=== PATIENT | female | born 1970 | race Caucasian/White ===

== ENCOUNTER 2020-07-09 14:04 | Emergency (ER) | payer OTHER, SELFPAY ==
--- NOTE | ~2020-07-09 | XR_ITS ---
EXAMINATION: XR chest 2V EXAM DATE: 07/09/2020 14:51 INDICATION: Chest pain for a day. TECHNIQUE: Frontal and lateral projections of the chest obtained and reviewed. There is no prior tonny dy for comparison. FINDINGS: The lungs are clear. There are no pleural effusions. The cardiomediastinal silhouette is within normal limits. There is no pneumothorax suspected. The bones and soft tissues are unremarkab le. IMPRESSION: Normal chest x-ray exam. Reviewed, dictated and finalized at location A. IMPRESSION: Normal chest x-ray exam.
[2020-07-09 14:08] VITALS: BP 154/94; PULSE 117; RESP 20; TEMP 36.9; O2SAT 98
--- NOTE | 2020-07-09 14:18 | ED.GENADULT ---
HPI - General Adult General Chief complaint: Chest Pain Stated complaint: Pain from back around to front Time Seen by Provider: 07/09/20 14:24 Source: patient and RN notes reviewed Mode of arrival: ambulatory Limitations: no limitations History of Present Illness HPI narrative: 50-year-old female with history of asthma presents with concern for chest and shoulder pain, left-sided back pain that wraps around to the front of her chest on her left breast. She reports she had stabbing chest pain recently and was seen by her primary care doctor and was diagnosed with pleurisy, given steroids. Reports her lisinopril dose was increased from 2.5 mg to 5 mg. Reports since the increase in lisinopril she has been having intermittent dizziness, headaches, lightheadedness. She denies cough, shortness of breath. Reports her asthma has been well controlled. She denies rash at the site of her left chest and back pain. Patient reports she was vaccinated for Covid in May. MD complaint: Chest pain Related Data Home Medications Medication Instructions Recorded Confirmed albuterol sulfate [ProAir HFA] 90 mcg INHALATION Q4-6H PRN 07/09/20 07/09/20 fluticasone propion-salmeterol 1 inh INHALATION BID 07/09/20 07/09/20 [Advair Diskus] lisinopril 5 mg PO DAILY 07/09/20 07/09/20 montelukast 10 mg PO DAILY 07/09/20 07/09/20 Allergies Allergy/AdvReac Type Severity Reaction Status Date / Time No Known Allergies Allergy Verified 07/09/20 14:28 Review of Systems Review of Systems: Narrative: CONSTITUTIONAL: Denies malaise, chills, sweats, or fever. EYES: Denies visual changes ENT: Denies rhinorrhea, congestion, sinus pain, otalgia or sore throat. CARDIOVASCULAR: Reports bilateral chest pressure and tightness. Denies palpitations, or edema. RESPIRATORY: Denies cough or dyspnea. GASTROINTESTINAL: Denies abdominal pain, nausea, vomiting, diarrhea, bloody, or mucous stools. SKIN: Denies rash or itching. MUSCULOSKELETAL: Reports bilateral shoulder pressure and tension, left-sided upper back pain that wraps around to the left-sided chest. Denies myalgia. NEUROLOGIC: Denies numbness, weakness. Reports headache. PSYCHIATRIC: Reports anxiety All systems reviewed & are unremarkable except as noted in HPI and below PMFSH Comments At time of signature, agree with nursing past medical, surgical, social and family history. There is no relevant family history pertinent to the presenting complaint Exam Narrative: Exam Narrative: GENERAL: Well-appearing, well-nourished, and in no acute distress. HEAD: Normocephalic, atraumatic. EYES: PERRLA, conjunctivae clear, and EOMI. No nystagmus. ENT: Nares clear. Mucous membranes moist. NECK: Supple. No lymphadenopathy. CHEST: No respiratory distress. Clear to auscultation. No bony deformities, no asymmetry. Speaks in full sentences. HEART: Regular rate and rhythm. No murmur heard. Normal peripheral pulses. SKIN: Warm, dry, no rash. NEURO: Alert and oriented x3. No focal deficits. Cranial nerves II through XII grossly intact PSYCH: Normal mood and affect Course Course Emergency Course: Patient is aware of, understands and agrees to treatment plan. Patient has a follow-up appointment with her primary care doctor today. Portions of this record may have been created with voice recognition software Vital Signs Vital signs: Vital Signs Temperature 98.5 F 07/09/20 14:08 Pulse Rate 117 H 07/09/20 14:08 Respiratory Rate 20 07/09/20 14:08 Blood Pressure 154/94 H 07/09/20 14:08 Pulse Oximetry 98 07/09/20 14:08 Temperature 98.5 F 07/09/20 14:08 Pulse Rate 117 H 07/09/20 14:08 Respiratory Rate 20 07/09/20 14:08 Blood Pressure 154/94 H 07/09/20 14:08 Pulse Oximetry 98 07/09/20 14:08 Reviewed. Patient has history of hypertension Medical Decision Making MDM Narrative Medical decision making narrative: Exam findings EKG, and imaging show no acute concerns or changes; patient is non-toxic
--- NOTE | 2020-07-09 14:31 | ECG_ITS ---
Measurements Intervals [place] Rate: 109 P: 59 [place]: 134 QRS: -7 QRSD: 77 T: 44 QT: 322 QTc: 434 Interpretive Statements SINUS TACHYCARDIA ABNORMAL ECG Electronically Signed On 07-09-2020 14:43:21 CDT by Efrain Brooks D.O.
== END 2020-07-09 15:10 | disposition home or self-care (01) ==
PROVIDERS: Emergency Provider Nurse Practitioner; PCP Internal Medicine
DX: R07.9 Chest pain, unspecified (principal); Z20.822 Contact with and (suspected) exposure to COVID-19; I10 Essential (primary) hypertension; J45.909 Unspecified asthma, uncomplicated
CPT/HCPCS: 71046; 87426; 93005; 99203; C9803; G0463

== ENCOUNTER 2020-09-26 11:30 | Outpatient (CLI) | payer OTHER, SELFPAY ==
[2020-09-26 11:57] LABS: Anion Gap 9 mmol/L (8-16); Blood Urea Nitrogen 9 mg/dL (7-17); Calcium 9.2 mg/dL (8.4-10.2); Carbon Dioxide 24 mmol/L (22-30); Chloride 103 mmol/L (98-107); Estimated Glomerular Filt Rate > 60; Glucose 111 mg/dL (65-110); Potassium 4.1 mmol/L (3.4-5.0); Sodium 136 mmol/L (137-145)
[2020-09-26 12:48] LABS: Thyroid Stimulating Hormone Reflex 0.893 uIU/mL (0.465-4.68)
== END 2020-09-26 11:31 | disposition home or self-care (01) ==
LOC: ANHLAB 11:32
PROVIDERS: PCP Internal Medicine; Visit Provider Otolaryngology
DX: R26.89 Other abnormalities of gait and mobility (principal); R55 Syncope and collapse; R40.0 Somnolence; R00.2 Palpitations
CPT/HCPCS: 36415; 80048; 84443

== ENCOUNTER 2021-02-17 12:12 | Emergency (ER) | payer OTHER, SELFPAY ==
[2021-02-17 12:32] VITALS: BP 152/97; PULSE 119; RESP 20; TEMP 37.3; O2SAT 99
--- NOTE | 2021-02-17 14:08 | ED.URI ---
HPI - URI/Sore Throat General Chief Complaint: Upper Respiratory Infection Stated Complaint: cough congestion sore throat headache Source: patient and RN notes reviewed Mode of arrival: ambulatory History of Present Illness HPI Narrative: This is a 51-year-old female who presented to urgent care with complaints of a productive cough with greenish sputum, S OB nasal and chest congestion, hoarseness, that started 2 days ago. Patient notes that she took DayQuil at home which relieved her symptoms for short period of time. Patient is vaccinated and has not had any exposure to Covid. Related Data Home Medications Medication Instructions Recorded Confirmed albuterol sulfate [ProAir HFA] 90 mcg INHALATION Q4-6H PRN 07/09/20 02/17/21 cetirizine 10 mg capsule 10 mg PO DAILY PRN 09/26/20 02/17/21 fluticasone propion-salmeterol 1 inh INHALATION Q12H 02/17/21 02/17/21 [Advair Diskus] Allergies Allergy/AdvReac Type Severity Reaction Status Date / Time cedarwood Allergy Unknown unknown Verified 02/17/21 13:25 Review of Systems Review of Systems: A 14 organ system Review of Systems was performed and pertinent positives included in the HPI, otherwise remaining ROS is negative. [facility] Family History Family History Father Alcoholism Malignant neoplasm of prostate Hypertension Heart disease Cerebrovascular accident Mother Alcoholism Hypertension Depression Other Asthma Grandparent Alcoholism Lung cancer metastatic to brain Grandparent FHx: kidney cancer Social History Social History Smoking status: Never smoker Alcohol intake: current Substance use: never Substance use type: does not use Exam Narrative: GENERAL: This is a well-nourished, well-developed patient, in no apparent distress. HEAD: normocephalic, atraumatic. EYES: PERRL. Sclera clear/white. Vision is grossly intact. EARS: External ears normal, auditory canals clear and without drainage, TMs normal without perforation. Hearing grossly intact. NOSE: External nose normal with no obvious nasal discharge, nares without redness, no rhinorrhea. THROAT: Mucous membranes moist, posterior pharynx clear. NECK: Neck supple, non-tender without lymphadenopathy, masses or thyromegaly. CARDIOVASCULAR: Regular rate and rhythm without murmurs, gallops, or rubs. RESPIRATORY: Clear to auscultation. Breath sounds equal bilaterally. No wheezes, rales, or rhonchi. GASTROINTESTINAL: Abdomen soft, non-tender, nondistended. Bowel sounds are active. No hepato-splenomegaly, or palpable masses. No guarding. SKIN: warm, intact with no suspicious lesions or rash, good texture and turgor. NEURO: awake, alert, and oriented to person, place and time. There were no obvious focal neurologic abnormalities. Steady gait EXTREMITIES: Normal range of motion. No edema. No calf tenderness. Negative Homans sign bilaterally. BACK: Nontender without deformity or crepitance. No flank tenderness. Course Course Emergency Course: Patient diagnosed with viral infection will receive guaifenesin, Flonase, Claritin in [facility]. Will be ordered a drive-through PCR Covid Vital Signs Vital signs: Vital Signs Temperature 99.2 F 02/17/21 12:32 Pulse Rate 119 H 02/17/21 12:32 Respiratory Rate 20 02/17/21 12:32 Blood Pressure 152/97 H 02/17/21 12:32 Pulse Oximetry 99 02/17/21 12:32 Temperature 99.2 F 02/17/21 12:32 Pulse Rate 119 H 02/17/21 12:32 Respiratory Rate 20 02/17/21 12:32 Blood Pressure 152/97 H 02/17/21 12:32 Pulse Oximetry 99 02/17/21 12:32 MDM - URI/Sore Throat Differential Diagnosis Differential diagnosis: Likely upper respiratory infection, viral infection, bronchitis and pharyngitis Discharge Plan Discharge Clinical Impression: Viral infection Patient Disposition: Home, Self-Care Condition: Stable Instruction
== END 2021-02-17 14:14 | disposition home or self-care (01) ==
PROVIDERS: Emergency Provider Nurse Practitioner
DX: B34.9 Viral infection, unspecified (principal); Z20.822 Contact with and (suspected) exposure to COVID-19
CPT/HCPCS: 99213; G0463

== ENCOUNTER → 2021-02-19 02:39 | Outpatient (CLI) | payer OTHER, SELFPAY ==
[2021-02-20 02:21] LABS: SARS-CoV-2 RNA PCR Negative
== END ==
PROVIDERS: Visit Provider Nurse Practitioner
DX: Z20.822 Contact with and (suspected) exposure to COVID-19 (principal)
CPT/HCPCS: C9803; U0003; U0005

== ENCOUNTER 2021-03-29 08:17 | Emergency (ER) | payer OTHER, SELFPAY ==
[2021-03-29 08:23] VITALS: BP 175/78; PULSE 115; RESP 16; TEMP 36.6; O2SAT 96
[2021-03-29 08:33] VITALS: BP 175/78; PULSE 115; RESP 16; TEMP 36.6; O2SAT 96
--- NOTE | 2021-03-29 08:54 | ED.GENADULT ---
HPI - General Adult General Chief complaint: Arrhythmia/Palpitations Stated complaint: chest palp and high heart rate Source: patient Mode of arrival: ambulatory Limitations: no limitations History of Present Illness HPI narrative: Patient presents for evaluation of palpitations that started last night around 1900 while watching TV. She indicates in June 2020 she was experiencing left-sided chest pain. She saw her primary provider who started her on prednisone and lisinopril. She experienced headache, dizziness, lightheadedness, nausea while on medication. Both medications were stopped. She was placed on coreg and had similar symptoms. She saw ENT and completed vestibular therapy without improvement. She saw neurology and was told she may have migraines. She had CT head that was negative and a negative stress test. She had a CT chest about 1.5 week ago and had several pulmonary nodules, however this was a noncontrast study as her creatinine did not permit contrast. She states she has tried several anxiety medications but the only one that worked was lorazepam. She has also tried omeprazole, meclizine and promethazine without improvement. She states her heart rate has been between 95-120 bpm since last night at 1900 on her fit bit with the exception of one hour this morning while she was able to sleep. She has an uncomfortable feeling in her chest, dizziness, lightheadedness, contractions in the back of her head and neck, and nausea. She does not smoke. She rarely consumes ETOH and denies street drugs. Her stress level is low per her reports. No personal or family hx of VTE. Not on estrogen replacement. No leg swelling. No SOB or significant cough. She has receive her COVID vaccine and her booster. Related Data Home Medications Medication Instructions Recorded Confirmed albuterol sulfate [ProAir HFA] 90 mcg INHALATION Q4-6H PRN 07/09/20 03/29/21 cetirizine 10 mg capsule 10 mg PO DAILY PRN 09/26/20 03/29/21 fluticasone propion-salmeterol INHALATION 03/29/21 [Advair Diskus] montelukast 10 mg PO DAILY 03/29/21 03/29/21 omeprazole 20 mg PO DAILY 03/29/21 03/29/21 Allergies Allergy/AdvReac Type Severity Reaction Status Date / Time c[place]wood Allergy Unknown unknown Verified 02/17/21 13:25 prednisone AdvReac Muscle Verified 03/29/21 08:30 Spasms Review of Systems Review of Systems: CONSTITUTIONAL: Denies fever, chills, or sweats. EYES: Denies visual changes, redness, or discharge. ENT: Denies rhinorrhea, congestion, sore throat, or otalgia. CARDIOVASCULAR: Reports palpitations and elevated heart rate. Reports uncomfortable feeling in her chest. RESPIRATORY: Denies cough or dyspnea. GASTROINTESTINAL: Reports nausea. Denies abdominal pain, vomiting, or diarrhea. GENITOURINARY: Denies dysuria or hematuria. SKIN: Denies rash or itching. MUSCULOSKELETAL: Denies back pain, joint pain, or myalgia. NEUROLOGIC: Reports dizziness, lightheadedness and headache PSYCHIATRIC: Denies anxiety or depression. [facility] Past Medical History Medical History (Updated 03/29/21 @ 09:30 by CEDRICK Ray, RADHA) Allergies Arthritis Asthma Encounter for laboratory testing for COVID-19 virus Headache Heart palpitations Imbalance Migraine variant Somnolence Surgical History Surgical History History of bunionectomy Family History Family History Father Alcoholism Malignant neoplasm of prostate Hypertension Heart disease Cerebrovascular accident Mother Alcoholism Hypertension Depression Other Asthma Grandparent Alcoholism Lung cancer metastatic to brain Grandparent FHx: kidney cancer Social History Social History (Updated 03/29/21 @ 09:14 by CEDRICK Ray, RADHA) Smoking status: Never smoker Alcohol intake: current Substance use: never Substance use type: does not u
[2021-03-29] MEDS: diphenhydrAMINE HCl CAP 25 MG CAPSULE PO (09:32)
--- NOTE | 2021-03-29 12:25 | ECG_ITS ---
Measurements Intervals [place] Rate: 111 P: 64 [place]: 177 QRS: 0 QRSD: 88 T: 33 QT: 333 QTc: 454 Interpretive Statements SINUS TACHYCARDIA POSSIBLE LEFT ATRIAL ENLARGEMENT CONSIDER INFERIOR INFARCT, AGE INDETERMINATE BORDERLINE ST ABNORMALITY- ANTEROLATERAL LEADS ABNORMAL ECG Electronically Signed On 03-29-2021 18:06:39 [employer] by Efrain Brooks D.O.
== END 2021-03-29 09:32 | disposition other institution (70) ==
PROVIDERS: Emergency Provider Nurse Practitioner; PCP Hospitalist
DX: R00.0 Tachycardia, unspecified (principal); R00.2 Palpitations; M19.90 Unspecified osteoarthritis, unspecified site; J45.909 Unspecified asthma, uncomplicated
CPT/HCPCS: 93005; 99213; A9270; G0463